=== PATIENT | male | born 1935 | race Caucasian/White ===

== ENCOUNTER 2020-02-13 22:17 | Observation (INO) ==
[2020-02-13] MEDS ORDERED: MECLIZINE HCL 25 MG TAB PO STA (22:34)
--- NOTE | 2020-02-13 22:34 | Emergency Department Note ---
Impression & Plan Dizziness ED Provider Note INFORMANT: [Patient] ED PROVIDER(S): Kevin Adkins MD CHIEF COMPLAINT: Dizziness PLAN: Disposition: Admitted Condition: [Good] MEDICAL DECISION MAKING: Patient presented emergency department complaining of dizziness. He did receive fluids prehospital. The patient did have some nystagmus on examination. He did have some difficulty with htsy-fd-oyck bilaterally but had normal rapid alternating movements in the upper extremities. CT imaging was unremarkable. The patient was given meclizine. CBC revealed a pancytopenia. The patient did not have any fever. He did have bradycardia on ECG however notes a history of bradycardia. Because of the pancytopenia Lyme testing as well as anaplasmosis testing done. No findings to suggest anaplasmosis on peripheral smear. DNA testing pending. Orthostatic testing was negative. The patient had an ambulatory trial ordered. He did not do well with this at all. He was very unsteady. The patient will need further management and evaluation in the hospital. I discussed the case with [facility]. The patient was evaluated in the ER for further management. Triage Nursing notes reviewed and agree them. No prior records in the EMR. Vital Signs: reviewed and remarkable for bradycardia Differential diagnosis: Benign positional vertigo, dehydration, hypovolemia, anemia, tumor, infection, hypoglycemia, electrolyte abnormalities, cardiac sources, intracerebral event, toxicologic, neurologic, as well as other pathologies. Diagnostics interpreted by me: ECG: Rate: 44 Rhythm: Sinus bradycardia with first-degree AV block [place]: Normal QRS: Low voltage ST segements: No elevation or depression Other: No PACs or PVCs. There is a low voltage QRS. Septal Q waves. Cardiac Monitoring: Cardiac monitoring ordered by me: The patient was placed on continuous cardiac monitoring and observed. It revealed a sinus bradycardia at 48 beats per minute without ectopy or evidence of dysrhythmia. Imaging studies: Chest x-ray. Findings: A chest x-ray was performed and revealed no pneumothorax, effusion, infiltrate, pulmonary edema, free air under the diaphragm, or wide mediastinum. Impression: No acute disease. Head CT: A noncontrast CT scan of the head was performed and was negative for tumor, fracture, intracranial hemorrhage, or other acute pathology. Consultation(s): [none] HPI: The patient is a 84 year old male who presents to the Emergency Room with complaints of dizziness. This started early today and is currently much improved. The patient also notes the following associated symptoms, spinning sensation, nausea and vomiting. The patient has been given NSS 250ml and Zofran 4mg by ems for relieving factors. Current pain is rated as 0/10. Pt denies LOC, headache, fevers, chills, diaphoresis, visual changes, neck pain, chest pain, breathing difficulties,abdominal pain, back pain, melena, hematochezia, urinary symptoms, numbness, weakness, lymphadenopathy, rash, or other complaints. ROS: See above HPI for pertinent positives & negatives. A total of 10 systems reviewed and were otherwise negative. PAST MEDICAL HISTORY:[See Below] HTN, CAD PAST SURGICAL HISTORY:[See Below] FAMILY HISTORY:[See Below] SOCIAL HISTORY:[See Below] HOME MEDICATIONS:[See Below] ALLERGIES:[See Below] VITALS:[See Below] PHYSICAL EXAMINATION: GENERAL: Awake, alert, well-appearing, in no distress HENT: Normocephalic, atraumatic. Oropharynx unremarkable. EYES: Normal conjunctiva. Sclera non-icteric. NECK: Inspection normal. Non-tender. Supple. No nuchal rigidity. FROM. No masses. RESPIRATORY: Clear to auscultation. No wheezes. No rales. Normal respiratory effort. CARDIAC: Normal rate. Normal rhythm. No murmurs. No rubs. Extremities warm and well perfused. Pulses equal. No JVD. GI: Soft, non-distended. No tenderness to palpation. No rebound or guarding. No masses. RECTAL: Deferred. MUSCULOSKELETAL: Atraumatic. Chest examination reveals no tenderness. The back is symmetrical on inspection without obvious abnormality. There is no CVA tenderness to palpation. No joint edema. LOWER EXTREMITIES: Calves are equal size bilaterally and non-tender. No edema. No discoloration. NEURO: Normal sensorium. No sensory or motor deficits noted. SKIN: No rash or jaundice noted. ED COURSE: [Critical Care:] [None] Kevin Adkins MD Past Med/Surg History Social History Smoking Status: Never smoker Feels Safe at Home: Yes Allergies Allergies Allergy/AdvReac Type Severity Reaction Status Date / Time No Known Allergies Allergy Unverified 02/14/20 00:36 Home Meds Home Medications Medication Instructions Recorded Confirmed amlodipine 5 mg PO DAILY 02/14/20 02/14/20 aspirin 81 mg PO DAILY 02/14/20 02/14/20 atorvastatin 80 mg PO HS 02/14/20 02/14/20 calcium carbonate-vitamin D3 1 tab PO DAILY 02/14/20 02/14/20 [Calcium 600 + D(3)] doxazosin 2 mg PO DAILY 02/14/20 02/14/20 nitroglycerin [Nitrostat] 0.4 mg SUBLINGUAL UD PRN 02/14/20 02/14/20 omega 2-xzm-zqm-fish oil [Fish Oil] 2 cap PO DAILY 02/14/20 02/14/20 Results & Data (ED) Vital Signs Vital Signs - 24 hr 02/13/20 22:27 02/13/20 23:30 02/13/20 23:41 Temperature 36.4 C L Temperature Source Oral Pulse Rate - Lying 44 L Pulse Rate - Sitting 55 L Pulse Rate - Standing 60 Pulse Rate 48 L Pulse Rate [Right Finger] 55 L Pulse Rhythm [Right Finger] Respiratory Rate 18 16 Respiratory Depth Normal Normal Blood Pressure - Lying 149/58 H Blood Pressure - Sitting 157/63 H Blood Pressure- Standing 157/67 H Blood Pressure 172/71 H Blood Pressure [Right Arm] 159/67 H Blood Pressure Mean 104 Blood Pressure Mean [Right Arm] 97 Blood Pressure Position Lying Blood Pressure Position [Right Arm] Lying Pulse Oximetry 96 96 96 Oxygen Delivery Method Room Air Room Air Room Air Sepsis Recent Fever Within 48 Hours No Sepsis New/Unexplained Change in Mental Status No Sepsis Action Taken by Nursing No Action Required 02/14/20 01:00 Temperature Temperature Source Pulse Rate - Lying Pulse Rate - Sitting Pulse Rate - Standing Pulse Rate Pulse Rate [Right Finger] 48 L Pulse Rhythm [Right Finger] Regular Respiratory Rate 16 Respiratory Depth Normal Blood Pressure - Lying Blood Pressure - Sitting Blood Pressure- Standing Blood Pressure Blood Pressure [Right Arm] 155/63 H Blood Pressure Mean Blood Pressure Mean [Right Arm] 93 Blood Pressure Position Blood Pressure Position [Right Arm] Lying Pulse Oximetry 96 Oxygen Delivery Method Room Air Sepsis Recent Fever Within 48 Hours Sepsis New/Unexplained Change in Mental Status Sepsis Action Taken by Nursing Laboratory Data Result diagrams: 02/13/20 23:26 02/13/20 23:26 Lab Results 02/13/20 02/13/20 02/13/20 Range/Units 23:26 23:26 23:26 WBC 4.04 L (4.8-10.8) K/uL RBC 4.09 L (4.7-6.1) M/uL Hgb 12.5 L (14.0-18.0) g/dL Hct 36.5 L (42-52) % MCV 89.2 (80-100) fL MCH 30.6 (25-34) pg MCHC 34.2 (32-36) g/dL RDW Std Deviation 43.7 (36.4-46.3) fL RDW Coeff of [place] 13.4 (11.5-14.5) % Plt Count 115 L (130-400) K/uL MPV 8.8 (7.4-10.4) fL Immature Gran % (Auto) 0.2 % Neut % (Auto) 80.3 % Lymph % (Auto) 15.1 % [place] % (Auto) 3.7 % Eos % (Auto) 0.5 % Baso % (Auto) 0.2 % Neut # (Auto) 3.24 (1.4-6.5) K/uL Lymph # (Auto) 0.61 L (1.2-3.4) K/uL [place] # (Auto) 0.15 (0.11-0.59) K/uL Eos # (Auto) 0.02 (0-0.5) K/uL Baso # (Auto) 0.01 (0-0.2) K/uL Immature Gran # (Auto) 0.01 (0.00-0.02) K/uL Sodium 142 (136-145) mmol/L Potassium 3.7 (3.5-5.1) mmol/L Chloride 109 H (98-107) mmol/L Carbon Dioxide 27 (21-32) mmol/L Anion Gap 6.0 (3-11) BUN 20 H (7-18) mg/dl Creatinine 1.08 (0.6-1.4) mg/dl Est Cr Clr Drug Dosing 54.9 ml/min Est GFR ( Amer) 72.2 Est GFR (Non-Af Amer) 62.3 BUN/Creatinine Ratio 18.9 (10-20) Glucose 116 H (70-99) mg/dl Calcium 8.3 L (8.5-10.1) mg/dl Total Bilirubin 0.7 (0.2-1) mg/dl AST 18 (15-37) U/L ALT 22 (12-78) U/L Alkaline Phosphatase 61 (45-117) U/L Troponin I < 0.015 (0-0.045) ng/ml Total Protein 6.3 L (6.4-8.2) gm/dl Albumin 3.7 (3.4-5.0) gm/dl Globulin 2.6 (2.5-4.0) gm/dl Albumin/Globulin Ratio 1.4 (0.9-2) Urine Color Urine Appearance (Clear) Urine pH (4.5-7.5) Ur Specific [place] (1.000-1.030) Urine Protein (Negative) Urine Glucose (UA) (Negative) Urine Ketones (Negative) Urine Blood (Negative) Urine Nitrite (Negative) Urine Bilirubin (Negative) Urine Urobilinogen (Negative) Ur Leukocyte Esterase (Negative) Urine WBC (Auto) (0-5) /hpf Urine RBC (Auto) (0-4) /hpf U Hyaline Cast (Auto) (0-5) /lpf U Epithel Cells (Auto) (0-5) /lpf Urine Bacteria (Auto) (Negative) Anaplasma Smear See Comment Lyme Disease IgG Ab Negative (Negative) Lyme Disease IgM Ab Negative (Negative) 02/14/20 Range/Units 00:34 WBC (4.8-10.8) K/uL RBC (4.7-6.1) M/uL Hgb (14.0-18.0) g/dL Hct (42-52) % MCV (80-100) fL MCH (25-34) pg MCHC (32-36) g/dL RDW Std Deviation (36.4-46.3) fL RDW Coeff of [place] (11.5-14.5) % Plt Count (130-400) K/uL MPV (7.4-10.4) fL Immature Gran % (Auto) % Neut % (Auto) % Lymph % (Auto) % [place] % (Auto) % Eos % (Auto) % Baso % (Auto) % Neut # (Auto) (1.4-6.5) K/uL Lymph # (Auto) (1.2-3.4) K/uL [place] # (Auto) (0.11-0.59) K/uL Eos # (Auto) (0-0.5) K/uL Baso # (Auto) (0-0.2) K/uL Immature Gran # (Auto) (0.00-0.02) K/uL Sodium (136-145) mmol/L Potassium (3.5-5.1) mmol/L Chloride (98-107) mmol/L Carbon Dioxide (21-32) mmol/L Anion Gap (3-11) BUN (7-18) mg/dl Creatinine (0.6-1.4) mg/dl Est Cr Clr Drug Dosing ml/min Est GFR ( Amer) Est GFR (Non-Af Amer) BUN/Creatinine Ratio (10-20) Glucose (70-99) mg/dl Calcium (8.5-10.1) mg/dl Total Bilirubin (0.2-1) mg/dl AST (15-37) U/L ALT (12-78) U/L Alkaline Phosphatase (45-117) U/L Troponin I (0-0.045) ng/ml Total Protein (6.4-8.2) gm/dl Albumin (3.4-5.0) gm/dl Globulin (2.5-4.0) gm/dl Albumin/Globulin Ratio (0.9-2) Urine Color Yellow Urine Appearance Clear (Clear) Urine pH 7.0 (4.5-7.5) Ur Specific [place] 1.015 (1.000-1.030) Urine Protein Negative (Negative) Urine Glucose (UA) Negative (Negative) Urine Ketones 1+ H (Negative) Urine Blood Negative (Negative) Urine Nitrite Negative (Negative) Urine Bilirubin Negative (Negative) Urine Urobilinogen Negative (Negative) Ur Leukocyte Esterase 1+ H (Negative) Urine WBC (Auto) 1-5 (0-5) /hpf Urine RBC (Auto) 0-4 (0-4) /hpf U Hyaline Cast (Auto) 1-5 (0-5) /lpf U Epithel Cells (Auto) >30 H (0-5) /lpf Urine Bacteria (Auto) Negative (Negative) Anaplasma Smear Lyme Disease IgG Ab (Negative) Lyme Disease IgM Ab (Negative) Administered Medications Sodium Chloride (Nss 1000ml) 1,000 mls @ 125 mls/hr IV .Q8H UNIQUE Stop: 03/14/20 22:44 Last Admin: 02/13/20 23:39 Dose: 125 mls/hr Documented by: [id number] Discontinued Medications Meclizine HCl (Antivert) 25 mg PO NOW STA Stop: 02/13/20 22:35 Last Admin: 02/13/20 23:39 Dose: 25 mg Documented by: [id number] Discharge Plan Visit Data Chief Complaint: Dizziness Stated Complaint: WEAKNESS, DIZZY ED Provider: Kevin Adkins Discharge Problem: Dizziness Forms Stand Alone Forms: Count Includes [facility] Prescriptions Prescriptions: No Action atorvastatin 80 mg Tablet 80 mg PO HS RF: 0 aspirin 81 mg Tablet,Delayed Release (Dr/Ec) 81 mg PO DAILY RF: 0 amlodipine 10 mg Tablet 5 mg PO DAILY RF: 0 doxazosin 4 mg Tablet 2 mg PO DAILY RF: 0 calcium carbonate-vitamin D3 [Calcium 600 + D(3)] 600 mg(1,500mg) -400 unit Tablet 1 tab PO DAILY RF: 0 omega 4-dug-llb-fish oil [Fish Oil] 1,000 mg (120 mg-180 mg) Capsule 2 cap PO DAILY RF: 0 nitroglycerin [Nitrostat] 0.4 mg Tablet, Sublingual 0.4 mg sublingual UD PRN (Reason: Chest Pain) RF: 0
[2020-02-13] MEDS ORDERED: SODIUM CHLORIDE 0.9% 1000ML 1,000 ML IV SCH (22:45)
[2020-02-13 23:46] LABS: Basophils # (auto) 0.01 K/uL (0-0.2); Basophils % (auto) 0.2 %; Eosinophils # (auto) 0.02 K/uL (0-0.5); Eosinophils % (auto) 0.5 %; Hematocrit (blood only) 36.5 % (42-52); Hemoglobin 12.5 g/dL (14.0-18.0); Immature Granulocytes # (auto) 0.01 K/uL (0.00-0.02); Immature Granulocytes % (auto) 0.2 %; Lymphocytes # (auto) 0.61 K/uL (1.2-3.4); Lymphocytes % (auto) 15.1 %; Mean Corpuscular Hemoglobin 30.6 pg (25-34); Mean Corpuscular Hgb Conc 34.2 g/dL (32-36); Mean Corpuscular Volume 89.2 fL (80-100); Mean Platelet Volume 8.8 fL (7.4-10.4); Monocytes # (auto) 0.15 K/uL (0.11-0.59); Monocytes % (auto) 3.7 %; Neutrophils # (auto) 3.24 K/uL (1.4-6.5); Neutrophils % (auto) 80.3 %; Platelet Count 115 K/uL (130-400); RDW Coefficient of Variation 13.4 % (11.5-14.5); RDW Standard Deviation 43.7 fL (36.4-46.3); Red Blood Count 4.09 M/uL (4.7-6.1); White Blood Count 4.04 K/uL (4.8-10.8)
[2020-02-14 00:06] LABS: Alanine Aminotransferase 22 U/L (12-78); Albumin Level 3.7 gm/dl (3.4-5.0); Aspartate Aminotransferase 18 U/L (15-37); BUN Creatinine Ratio 18.9 (10-20); Blood Urea Nitrogen 20 mg/dl (7-18); Calcium 8.3 mg/dl (8.5-10.1); Carbon Dioxide 27 mmol/L (21-32); Chloride 109 mmol/L (98-107); Creatinine Clr Calc Pharmacy 54.9 ml/min; Est GFR (African American) 72.2; Est GFR (Non-African American) 62.3; Glucose 116 mg/dl (70-99); Potassium 3.7 mmol/L (3.5-5.1); Sodium 142 mmol/L (136-145)
[2020-02-14 00:11] LABS: Albumin Globulin Ratio 1.4 (0.9-2); Alkaline Phosphatase 61 U/L (45-117); Bilirubin,Total 0.7 mg/dl (0.2-1); Globulin 2.6 gm/dl (2.5-4.0); Total Protein 6.3 gm/dl (6.4-8.2); Troponin I < 0.015 ng/ml (0-0.045)
[2020-02-14 00:42] LABS: Appearance Urine Clear (Clear); Bacteria Urine Automated Negative (Negative); Bilirubin Urine Negative (Negative); Blood Urine Negative (Negative); Color Urine Yellow; Epithelial Cell Urine Auto >30 /lpf (0-5); Glucose Urine UA Negative (Negative); Ketones Urine 1+ (Negative); Leukocyte Esterase Urine 1+ (Negative); Nitrite Urine Negative (Negative); Protein Urine Negative (Negative); RBC Urine Automated 0-4 /hpf (0-4); Specific Gravity Urine 1.015 (1.000-1.030); Urobilinogen Urine Negative (Negative)
[2020-02-14 00:58] LABS: Lyme Ab IgG w/WB Rflx Negative (Negative); Lyme Ab IgM w/WB Rflx Negative (Negative)
--- NOTE | 2020-02-14 04:19 | History and Physical Report ---
DATE OF ADMISSION: 02/14/2020 CHIEF COMPLAINT: Dizziness. HISTORY OF PRESENT ILLNESS: This is an 84-year-old male with past medical history significant for hypertension, hyperlipidemia who lives with his , presents with dizziness. The patient says he was working outside the house when he started feeling dizzy and somewhat staggering gait, which prompted him to come to the ER. He received meclizine and feeling better now. CT of the head is unremarkable. Labs were okay except for showing mild pancytopenia. We do not have old records to compare. The patient says he is currently feeling fine, that dizziness has resolved, it happened only for that moment when he was at home. The patient is very hard of hearing, have to write on paper to get history from him.But able to understand some questions verbally too. He denies any headache, denies any chest pain, no shortness of breath, no nausea, no abdominal pain, no diarrhea. Appetite is very good. No fever, no chills, no cough, no runny nose, no sore throat. Currently resting comfortably and hemodynamically stable. ALLERGIES: No known drug allergies. PAST MEDICAL HISTORY: As mentioned above. PAST SURGICAL HISTORY: Appendectomy. MEDICATIONS: The patient is on amlodipine 5 mg p.o. daily, aspirin 81 mg p.o. daily, atorvastatin 80 mg p.o. at bedtime, calcium plus vitamin D 1 tablet daily, doxazosin 2 mg p.o. daily, nitroglycerin 0.4 mg sublingual p.r.n., omega fish oil 2 capsules daily. FAMILY HISTORY: The patient denies any significant family history. SOCIAL HISTORY: No smoking, alcohol very rarely. Lives with his . REVIEW OF SYMPTOMS: As per HPI. Rest of review of symptoms negative. PHYSICAL EXAMINATION: GENERAL: The patient is of moderate build, not in acute distress. VITAL SIGNS: Temperature 36.4, pulse in 50s and 40s, blood pressure 155/63, oxygen 96% on room air. HEENT: No pallor, no icterus. Pupils equal, round, reactive to light. Oral mucosa moist. No facial droop. NECK: No neck masses. Supple. CARDIOVASCULAR: S1, S2 heard, regular rate and rhythm, no murmur, no gallop. RESPIRATORY SYSTEM: Normal AP diameter. No accessory muscle use. No wheezing, no crackles. ABDOMEN: Soft, bowel sounds present, nontender. No distention. CENTRAL NERVOUS SYSTEM: Cranial nerves II-XII are grossly intact. co ordination of movements normal. Power 5/5 in all extremities. Nonfocal. EXTREMITIES: No edema, no erythema. LABORATORY DATA: WBC 4, hemoglobin 12.5, hematocrit 36.5, platelets 115. Sodium 142, potassium 3.7, chloride 102, bicarbonate 27, BUN 20, creatinine 1.08, serum glucose 116, calcium 8.3, total bilirubin 0.7, AST 18, ALT 22, alkaline phosphatase 61. Troponin I less than 0.015. Urinalysis, +1 ketones, +1 leukocyte esterase. Anaplasma smear is unremarkable. Lyme screen negative. IMAGING: Chest x-ray, no acute findings. CT of the head, preliminary report, no acute findings. EKG: Marked sinus bradycardia, first degree AV block at a rate of 44. No previous ECG available. ASSESSMENT AND PLAN: This is an 84-year-old male presents with dizziness. 1. Dizziness: It happened at home, currently resolved. CT head preliminary report unremarkable, possibly somewhat mild dehydration, will check, orthostatics. We will place on gentle fluids. Received meclizine in the ER. We will place on meclizine p.r.n. We will order PT, OT in a.m. and monitor in the [facility] tele. 2. Bradycardia: Seems to be chronic , but will monitor in tele. If anything concern, will consult cardiology. 3. Pancytopenia: We do no have old records. His Lyme screen is negative. His Anaplasma smear is negative, but his LFTs are okay. No fever and the patient denies any tick bites. Needs followup. 4. Hypertension: Continue his amlodipine. 5. Hyperlipidemia. Continue statin. 6. Deep vein thrombosis prophylaxis: Sequential compression devices. DISPOSITION: Observation in [facility]. PT and OT prior to discharge. Social Service to help with discharge planning. Code, full code. MTDD
[2020-02-14] MEDS ORDERED: NITROGLYCERIN SL 0.4 MG/TAB TAB SL PRN ×2 (04:21)
[2020-02-14] MEDS ORDERED: POLYETHYLENE (MIRALAX) 17 GM PACK PO PRN (04:21)
[2020-02-14] MEDS ORDERED: SODIUM CHLORIDE 0.9% 1000ML 1,000 ML IV SCH (04:21)
[2020-02-14] MEDS ORDERED: ACETAMINOPHEN 325 MG TAB PO PRN (04:21)
[2020-02-14 07:10] LABS: Basophils # (auto) 0.01 K/uL (0-0.2); Basophils % (auto) 0.2 %; Eosinophils # (auto) 0.01 K/uL (0-0.5); Eosinophils % (auto) 0.2 %; Hematocrit (blood only) 37.3 % (42-52); Hemoglobin 12.7 g/dL (14.0-18.0); Immature Granulocytes # (auto) 0.01 K/uL (0.00-0.02); Immature Granulocytes % (auto) 0.2 %; Lymphocytes # (auto) 0.78 K/uL (1.2-3.4); Lymphocytes % (auto) 18.3 %; Mean Corpuscular Hemoglobin 30.2 pg (25-34); Mean Corpuscular Volume 88.8 fL (80-100); Monocytes # (auto) 0.33 K/uL (0.11-0.59); Monocytes % (auto) 7.7 %; Neutrophils # (auto) 3.12 K/uL (1.4-6.5); Neutrophils % (auto) 73.4 %; Platelet Count 116 K/uL (130-400); RDW Coefficient of Variation 13.1 % (11.5-14.5); RDW Standard Deviation 42.5 fL (36.4-46.3); White Blood Count 4.26 K/uL (4.8-10.8)
--- NOTE | 2020-02-14 07:10 | CT Scan Report ---
CT OF THE HEAD WITHOUT CONTRAST CLINICAL HISTORY: dizziness COMPARISON STUDY: No previous studies for comparison. CT DOSE: 537.48 mGy.cm TECHNIQUE: Helical axial images of the head were obtained without IV contrast. Automated exposure con trol was utilized for the study. A dose lowering technique was utilized adhering to the principles o f ALARA. FINDINGS: No acute intracranial hemorrhage, midline shift or mass effect is present. The ventricular system is unremarkable. The basilar cisterns are patent. No extra-axial collections are present. Ther e are no findings to suggest acute dural sinus thrombosis or acute territorial infarct. No significan t calvarial abnormalities are present. Visualized portions of the sinuses and mastoid air cells are c lear. Mild white matter hypodensity suggests small vessel disease. IMPRESSION: No acute intracranial findings. ACT 112: Negative or not required by law. Electronically signed by: Zack Christianson M.D. 02/14/2020 7:09 AM
--- NOTE | 2020-02-14 07:11 | XRay Report ---
XR chest 1V portable CLINICAL HISTORY: dizziness COMPARISON STUDY: No previous studies for comparison. FINDINGS: Lung volumes are normal. There is no pneumothorax or pleural effusion. There is no consolid ation or evidence for pulmonary edema. There is mild to moderate cardiomegaly. IMPRESSION: 1. No acute findings. 2. Mild to moderate cardiomegaly. ACT 112: Negative or not required by law. Electronically signed by: Zack Christianson M.D. 02/14/2020 7:10 AM
[2020-02-14 07:36] LABS: BUN Creatinine Ratio 16.4 (10-20); Calcium 8.7 mg/dl (8.5-10.1); Creatinine Clr Calc Pharmacy 59.7 ml/min; Est GFR (African American) 80.2; Est GFR (Non-African American) 69.2; Magnesium 2.3 mg/dl (1.8-2.4)
[2020-02-14 08:15] LABS: Creatine Kinase 119 U/L (39-308); Troponin I < 0.015 ng/ml (0-0.045)
[2020-02-14] MEDS ORDERED: MECLIZINE 12.5 MG TAB PO PRN (08:45)
[2020-02-14] MEDS ORDERED: AMLODIPINE BESYLATE 5 MG TAB PO SCH (09:00)
[2020-02-14] MEDS ORDERED: DOXAZosin MESYLATE TAB 2 MG TAB PO SCH (09:00)
[2020-02-14] MEDS ORDERED: CALCIUM 600MG + VIT D 400 IU TAB PO SCH (09:00)
[2020-02-14] MEDS ORDERED: ASPIRIN 81 MG ECTAB PO SCH (09:00)
--- NOTE | 2020-02-14 12:29 | Hospitalist Progress Note ---
Date of Service February 14, 2020 Assessment & Plan (1) Dizziness: Dizziness from possible dehydration Sinus Bradycardia with 1st degree block mild pancytopenia hypertension, dyslipidemia -As per history and physical "This is an 84-year-old male with past medical history significant for hypertension, hyperlipidemia who lives with his , presents with dizziness. The patient says he was working outside the house when he started feeling dizzy and somewhat staggering gait, which prompted him to come to the ER. He received meclizine and feeling better now. CT of the head is unremarkable. Labs were okay except for showing mild pancytopenia. We do not have old records to compare. The patient says he is currently feeling fine, that dizziness has resolved, it happened only for that moment when he was at home. The patient is very hard of hearing, have to write on paper to get history from him.But able to understand some questions verbally too. He denies any headache, denies any chest pain, no shortness of breath, no nausea, no abdominal pain, no diarrhea. Appetite is very good. No fever, no chills, no cough, no runny nose, no sore throat. Currently resting comfortably and hemodynamically stable. -admission:LABORATORY DATA: WBC 4, hemoglobin 12.5, hematocrit 36.5, platelets 115. Sodium 142, potassium 3.7, chloride 102, bicarbonate 27, BUN 20, creatinine 1.08, serum glucose 116, calcium 8.3, total bilirubin 0.7, AST 18, ALT 22, alkaline phosphatase 61. Urinalysis, with +1 ketones, +1 leukocyte esterase. Anaplasma smear is unremarkable. Lyme screen negative. around WBC 4,000. Platelets 115,000 -admission Chest x-ray, no acute findings. CT of the head, preliminary report, no acute findings. -EKG: Marked sinus bradycardia, first degree AV block at a rate of 44. No previous ECG available. -telemetry with sinus bradycardia in the mid 40s at times with first degree block. 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 Karen Manley [address] [place] [address] , [place] [address]; and fax number is [phone] and also with cardiology Dr. Fabrizio Olivera, [facility] on [address] [facility], [place], [place] [address] -Patient has follow up with Dr. Olivera on 02/15/2020. He go to this follow up. No changes to be made for his home medications -patient received IV fluids and likely his symptoms at home of dizziness was form exertion outdoors on a warm summer day. These symptoms did not recur during this hospital stay and patient ambulated with therapist and without symptoms. He and his will discuss with his heart doctor whether any needs in the future for pacemaker -Patient should follow up with primary care doctor on monitoring the complete blood count Admission and Anticipated Discharge Date Admission Date: February 14, 2020 Subjective no dizziness. no headache. mo vomiting. no nausea. no chest pain. no shortness of breath. no headache. ambulated with therapy without symptoms. IV fluids can be stopped. discussed with patient and his about his health history and outpatient follow ups Review of Systems Review of Systems: All systems reviewed & are unremarkable except as noted in Subjective Physical Exam Constitutional: WD/WN, vitals as above comfortable Eyes: PERRL, conjunctivae normal, anicteric sclerae EOM intact bilaterally ENMT: external ear and nose normal, oropharynx normal Neck: trachea midline, no thyromegaly normal visual inspection Respiratory: normal respiratory effort, lungs clear to auscultation Cardiovascular: Rate/Rhythm: regular rhythm and + bradycardic Gastrointestinal (Abdomen): normal bowel sounds, soft, nontender, no hepatosplenomegaly Musculoskeletal: Head/Neck/Chest: normocephalic and head atraumatic Neurologic: PERRL, EOMI, accommodation nl, no face palsy, no dysarthria CN's II-XI intact bilaterally Psychiatric: A+Ox3, euthymic affect Results & Data Results & Data ([facility]) Vital Signs (Past 12 Hours) Vital Signs Temp Pulse Pulse Resp BP BP Pulse Ox 02/14/20 10:59 36.6 C 63 18 129/63 95 02/14/20 07:23 36.3 C L 43 L 18 145/62 H 95 02/14/20 04:21 36.4 C L 44 L 62 18 170/70 H 94 02/14/20 03:36 45 L 15 150/68 H 96 02/14/20 02:00 45 L 15 155/64 H 96 02/14/20 01:00 48 L 16 155/63 H 96 Pulse Ox 02/14/20 10:59 02/14/20 07:23 02/14/20 04:21 95 02/14/20 03:36 02/14/20 02:00 02/14/20 01:00
--- NOTE | 2020-02-14 12:52 | Discharge Summary ---
Date of Service February 14, 2020 Admission HPI Per Admitting Provider CHIEF COMPLAINT: Dizziness. HISTORY OF PRESENT ILLNESS: This is an 84-year-old male with past medical history significant for hypertension, hyperlipidemia who lives with his , presents with dizziness. The patient says he was working outside the house when he started feeling dizzy and somewhat staggering gait, which prompted him to come to the ER. He received meclizine and feeling better now. CT of the head is unremarkable. Labs were okay except for showing mild pancytopenia. We do not have old records to compare. The patient says he is currently feeling fine, that dizziness has resolved, it happened only for that moment when he was at home. The patient is very hard of hearing, have to write on paper to get history from him.But able to understand some questions verbally too. He denies any headache, denies any chest pain, no shortness of breath, no nausea, no abdominal pain, no diarrhea. Appetite is very good. No fever, no chills, no cough, no runny nose, no sore throat. Currently resting comfortably and hemodynamically stable. Principal Diagnosis Dizziness from possible dehydration Sinus Bradycardia with 1st degree block mild pancytopenia hypertension, dyslipidemia Discharge Exam Constitutional WD/WN, vitals as above comfortable Eyes PERRL, conjunctivae normal, anicteric sclerae EOM intact bilaterally ENMT external ear and nose normal, oropharynx normal Neck trachea midline, no thyromegaly normal visual inspection Respiratory normal respiratory effort, lungs clear to auscultation Cardiovascular Rate/Rhythm: regular rhythm and + bradycardic Gastrointestinal (Abdomen) normal bowel sounds, soft, nontender, no hepatosplenomegaly Musculoskeletal Head/Neck/Chest: normocephalic and head atraumatic Neurologic PERRL, EOMI, accommodation nl, no face palsy, no dysarthria CN's II-XI intact bilaterally Psychiatric A+Ox3, euthymic affect Discharge Data Allergies Allergy/AdvReac Type Severity Reaction Status Date / Time No Known Allergies Allergy Unverified 02/14/20 00:36 Consultations 02/14/20 01:45 ED Decision to Admit Stat 02/14/20 04:21 Consult Case Management - Discharge Planning Routine Ordered Studies 02/13/20 22:34 CT head/brain wo con Urgent Hospital Course (1) Dizziness: Dizziness from possible dehydration Sinus Bradycardia with 1st degree block mild pancytopenia hypertension, dyslipidemia -As per history and physical "This is an 84-year-old male with past medical history significant for hypertension, hyperlipidemia who lives with his , presents with dizziness. The patient says he was working outside the house when he started feeling dizzy and somewhat staggering gait, which prompted him to come to the ER. He received meclizine and feeling better now. CT of the head is unremarkable. Labs were okay except for showing mild pancytopenia. We do not have old records to compare. The patient says he is currently feeling fine, that dizziness has resolved, it happened only for that moment when he was at home. The patient is very hard of hearing, have to write on paper to get history from him.But able to understand some questions verbally too. He denies any headache, denies any chest pain, no shortness of breath, no nausea, no abdominal pain, no diarrhea. Appetite is very good. No fever, no chills, no cough, no runny nose, no sore throat. Currently resting comfortably and hemodynamically stable. -admission:LABORATORY DATA: WBC 4, hemoglobin 12.5, hematocrit 36.5, platelets 115. Sodium 142, potassium 3.7, chloride 102, bicarbonate 27, BUN 20, creatinine 1.08, serum glucose 116, calcium 8.3, total bilirubin 0.7, AST 18, ALT 22, alkaline phosphatase 61. Urinalysis, with +1 ketones, +1 leukocyte esterase. Anaplasma smear is unremarkable. Lyme screen negative. around WBC 4,000. Platelets 115,000 -admission Chest x-ray, no acute findings. CT of the head, preliminary report, no acute findings. -EKG: Marked sinus bradycardia, first degree AV block at a rate of 44. No previous ECG available. -telemetry with sinus bradycardia in the mid 40s at times with first degree block. 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 Karen Manley [address] , [place] [address]; and fax number is [phone] and also with cardiology Dr. Fabrizio Olivera, [facility] on [address] [facility], [place], [place] [address] -Patient has follow up with Dr. Olivera on 02/15/2020. He go to this follow up. No changes to be made for his home medications -patient received IV fluids and likely his symptoms at home of dizziness was form exertion outdoors on a warm summer day. These symptoms did not recur during this hospital stay and patient ambulated with therapist and without symptoms. He and his will discuss with his heart doctor whether any needs in the future for pacemaker -Patient should follow up with primary care doctor on monitoring the complete blood count Total Time Total Time Spent Total Time Spent (In Minutes): 40 minutes Total Time Includes: Examination of the Patient, Discharge Planning, Medication Reconciliation and Communication With Other Providers Discharge Plan Discharge Items Patient Disposition: Home - Self-Care Reason For Visit: DIZZINESS Discharge Diagnosis: Dizziness from possible dehydration Sinus Bradycardia with 1st degree block mild pancytopenia hypertension, dyslipidemia Condition on Discharge: Good Activity: Resume your previous activity Non-emergency contact: Primary Care Provider and [employer] Call non-emergency contact if: you have any medication questions Follow-up/Referrals: PCP,NO [Primary Care Provider] - Diet: Heart Healthy Addtl Attending Provider Instructions: -As per history and physical "This is an 84-year-old male with past medical history significant for hypertension, hyperlipidemia who lives with his , presents with dizziness. The patient says he was working outside the house when he started feeling dizzy and somewhat staggering gait, which prompted him to come to the ER. He received meclizine and feeling better now. CT of the head is unremarkable. Labs were okay except for showing mild pancytopenia. We do not have old records to compare. The patient says he is currently feeling fine, that dizziness has resolved, it happened only for that moment when he was at home. The patient is very hard of hearing, have to write on paper to get history from him.But able to understand some questions verbally too. He denies any headache, denies any chest pain, no shortness of breath, no nausea, no abdominal pain, no diarrhea. Appetite is very good. No fever, no chills, no cough, no runny nose, no sore throat. Currently resting comfortably and hemodynamically stable. -admission:LABORATORY DATA: WBC 4, hemoglobin 12.5, hematocrit 36.5, platelets 115. Sodium 142, potassium 3.7, chloride 102, bicarbonate 27, BUN 20, creatinine 1.08, serum glucose 116, calcium 8.3, total bilirubin 0.7, AST 18, ALT 22, alkaline phosphatase 61. Urinalysis, with +1 ketones, +1 leukocyte esterase. Anaplasma smear is unremarkable. Lyme screen negative. around WBC 4,000. Platelets 115,000 -admission Chest x-ray, no acute findings. CT of the head, preliminary report, no acute findings. -EKG: Marked sinus bradycardia, first degree AV block at a rate of 44. No previous ECG available. -telemetry with sinus bradycardia in the mid 40s at times with first degree block. 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 Karen Manley [address] [place] [address] , [place] [address]; and fax number is [phone] and also with cardiology Dr. Fabrizio Olivera, [facility] on [address] [place], [place] [address] -Patient has follow up with Dr. Olivera on 02/15/2020. He go to this follow up. No changes to be made for his home medications -patient received IV fluids and likely his symptoms at home of dizziness was form exertion outdoors on a warm summer day. These symptoms did not recur during this hospital stay and patient ambulated with therapist and without symptoms. He and his will discuss with his heart doctor whether any needs in the future for pacemaker -Patient should follow up with primary care doctor on monitoring the complete blood count Pending Studies at Discharge: No Stand-Alone Forms: My [employer], Smoking Cessation Medications and DC Order Prescriptions: Continued atorvastatin 80 mg Tablet 80 mg PO HS RF: 0 aspirin 81 mg Tablet,Delayed Release (Dr/Ec) 81 mg PO DAILY RF: 0 amlodipine 10 mg Tablet 5 mg PO DAILY RF: 0 doxazosin 4 mg Tablet 2 mg PO DAILY RF: 0 calcium carbonate-vitamin D3 [Calcium 600 + D(3)] 600 mg(1,500mg) -400 unit Tablet 1 tab PO DAILY RF: 0 omega 1-cxx-qmn-fish oil [Fish Oil] 1,000 mg (120 mg-180 mg) Capsule 2 cap PO DAILY RF: 0 nitroglycerin [Nitrostat] 0.4 mg Tablet, Sublingual 0.4 mg sublingual UD PRN (Reason: Chest Pain) RF: 0 Discharge Orders: Discharge Order (Routine); Ordered 02/14/20 Ordered By: Nigel Varela Admission Data Admit Date/Time: 02/14/20 02:52 Attending Provider: Nigel Varela Admit Provider: Denis Canada Primary Care Provider: PCP,NO Other Providers: Denis Canada
[2020-02-14] MEDS ORDERED: ATORVASTATIN 40 MG TAB PO SCH (21:00)
--- NOTE | 2020-02-16 16:22 | Electrocardiogram Report ---
Test Reason : Blood Pressure : / mmHG Vent. Rate : 044 BPM Atrial Rate : 044 BPM P-R Int : 284 ms QRS Dur : 102 ms QT Int : 494 ms P-R-T Axes : 014 -01 027 degrees QTc Int : 422 ms Marked sinus bradycardia with 1st degree A-V block Low voltage QRS Septal infarct , age undetermined Abnormal ECG No previous ECGs available Confirmed by Caleb Copeland ([id number]) on 02/16/2020 4:22:46 PM Referred By: REFERRED SELF Confirmed By:Caleb Copeland
== END 2020-02-14 13:20 | disposition home or self-care (01) ==
LOC: 2N 22:17 → ED 22:17 → 2N 02-14 03:36